=== PATIENT | male | born 1995 | race African-American/Black ===

== ENCOUNTER 2017-12-17 13:54 | Outpatient (CLI) | payer MEDICAID ==
[~2017-12-17 13:54] MED LIST: ALBU8.5H8 IH; CLON-528 PO; FLUO20CA39 PO; IBUP-1985; LORA10TA7 PO; MELA5TAB14; OXCA600T; ZIPR80CA2 PO
== END 2017-12-17 23:59 | disposition home or self-care (01) ==
LOC: RAD 13:54
PROVIDERS: ATTEND Family Medicine
DX: G40.909 Epilepsy, unspecified, not intractable, without status epilepticus (principal); J45.909 Unspecified asthma, uncomplicated
CPT/HCPCS: 95816